=== PATIENT | male | born 1980 | race Two or more races ===

== ENCOUNTER 2018-07-19 15:02 | Emergency (ER) | payer OTHER ==
[2018-07-19] MEDS ORDERED: LIDOCAINE 2% VISCOUS 15 ML UDCUP PO ONE (15:29)
[2018-07-19] MEDS ORDERED: HYOSCYAMINE SULFATE 0.125 MG TAB PO ONE (15:29)
[2018-07-19] MEDS ORDERED: MAG HYDROX/AL HYDROX/SIMETH 30 ML UDCUP PO ONE (15:29)
--- NOTE | 2018-07-19 15:35 | EDPHY ---
H & P Stated Complaint: epigastric pain Time Seen by Provider: 07/19/18 15:28 HPI/ROS: CHIEF COMPLAINT: Epigastric pain HISTORY OF PRESENT ILLNESS: 38-year-old male presents with epigastric pain. Onset of intermittent epigastric pain 2 days ago. The pain occurs with eating and is moderate, located in the epigastric area. Transient relief with Tums. Associated with nausea. No prior similar symptoms. No history of peptic ulcer disease. REVIEW OF SYSTEMS: complete 10 point ROS reviewed and is negative except for the noted elements in the HPI - Personal History Current Tetanus/Diphtheria Vaccine: Unsure Current Tetanus Diphtheria and Acellular Pertussis (TDAP): Unsure - Medical/Surgical History Hx Asthma: No Hx Chronic Respiratory Disease: No Hx Diabetes: No Hx Cardiac Disease: No Hx Renal Disease: No Hx Cirrhosis: No Hx Alcoholism: No Hx Splenectomy or Spleen Trauma: No Other PMH: denies - Social History Smoking Status: Never smoked Alcohol Use: Occasionally Drug Use: None - Physical Exam Exam: General Appearance: Alert, pleasant Eyes: Pupils equal and round, no conjunctival pallor or injection ENT, Mouth: Mucous membranes moist Neck: Normal inspection Respiratory: Lungs are clear to auscultation Cardiovascular: Regular rate and rhythm Gastrointestinal: Abdomen is soft, epigastric tenderness Neurological: A&O, nonfocal, normal gait Skin: Warm and dry Extremities: Normal inspection Psychiatric: Mood and affect normal Constitutional: Initial Vital Signs Temperature (C) 37.1 C 07/19/18 15:05 Heart Rate 65 07/19/18 15:05 Respiratory Rate 16 07/19/18 15:05 Blood Pressure 140/72 H 07/19/18 15:05 O2 Sat (%) 97 07/19/18 15:05 O2 Delivery Mode Room Air Allergies/Adverse Reactions: No Known Allergies Allergy (Unverified 07/19/18 15:05) Home Medications: Medication Instructions Recorded Pantoprazole Sodium [Protonix 40mg 40 mg PO DAILY #20 tab 07/19/18 (*)] Medical Decision Making - Diagnostics EKG Interpretation: EKG interpreted by me reveals normal sinus rhythm, rate 63, borderline LAD, early repolarization pattern. Interpretation: Borderline EKG ED Course/Re-evaluation: This patient presents with intermittent epigastric pain, most suggestive of acute gastritis. EKG unremarkable and I so not suspect cardiac etiology of sx. GI cocktail given with relief in symptoms. d/w pt gastritis/PUD. Dietary instructions given. Protonix 40 mg orally given and a prescription was written. He will follow up with his primary care physician in 3-4 days if symptoms are not improved. Differential Diagnosis: Differential diagnosis includes though it is not limited to appendicitis, cholecystitis, diverticulitis, pyelonephritis, bowel perforation, small bowel obstruction. - Data Points Medications Given: Discontinued Medications Al Hydroxide/Mg Hydroxide (Maalox Susp) 30 ml PO ONCE ONE Stop: 07/19/18 15:30 Last Admin: 07/19/18 15:41 Dose: 30 ml Hyoscyamine Sulfate (Levsin, Hyomax-Sl) 0.25 mg PO ONCE ONE Stop: 07/19/18 15:30 Last Admin: 07/19/18 15:41 Dose: 0.25 mg Lidocaine (Lidocaine 2% Viscous) 15 ml PO ONCE ONE Stop: 07/19/18 15:30 Last Admin: 07/19/18 15:41 Dose: 15 ml Departure - Departure Disposition: Home, Routine, Self-Care Clinical Impression: Acute gastritis Condition: Good Instructions: Gastritis (ED), Diet for Stomach Ulcers and Gastritis (ED) Additional Instructions: Avoid fatty and spicy foods. Avoid eating within 4 hr of bedtime. Take Mylanta 30 min before meals and at bedtime. Take Protonix as prescribed. Return for worsening symptoms or any concerns. Referrals: Zenaida Hou MD [Medical Doctor] - 3-4 days, if not improved Prescriptions: Pantoprazole Sodium [Protonix 40mg (*)] 40 mg PO DAILY #20 tab
[2018-07-19] MEDS ORDERED: PANTOPRAZOLE SODIUM 40 MG TAB PO ONE (15:56)
[2018-07-19 16:06] VITALS: BP 143/90
--- NOTE | 2018-07-25 15:31 | CPEKG ---
Test Reason : OPEN Blood Pressure : / mmHG Vent. Rate : 063 BPM Atrial Rate : 063 BPM P-R Int : 161 ms QRS Dur : 085 ms QT Int : 380 ms P-R-T Axes : 003 -27 011 degrees QTc Int : 389 ms Sinus rhythm Borderline left axis deviation ST elev, probable normal early repol pattern Confirmed by Moses Rodriguez ([id number]) on 07/25/2018 3:31:25 PM Referred By: PHYSICIAN ED Confirmed By:Moses Rodriguez
== END 2018-07-19 16:04 | disposition home or self-care (01) ==
DX: K29.00 Acute gastritis without bleeding (principal)